=== PATIENT | female | born 1975 | race Caucasian/White ===

== ENCOUNTER 2016-07-20 08:49 | Emergency (ER) | payer OTHER ==
--- NOTE | 2016-07-20 10:38 | DIAGNOSTIC IMAGING REPORT ---
PROCEDURE: CT HEAD WITHOUT CONTRAST INDICATION: Headache. Vomiting. TECHNIQUE: Noncontrast axial images with sagittal and coronal reformations. COMPARISON: None. FINDINGS: Brain and ventricles are normal. No evidence of an acute process or hemorrhage. Sinuses and mastoids are normal. IMPRESSION: 1. Negative head CT. 2. Findings discussed with Dr. Ghislaine Son at [address] scans at this facility use dose modulation, iterative reconstruction, and/or weight-based dosing when appropriate to reduce radiation dose to as low as reasonably achievable.
--- NOTE | 2016-07-20 11:37 | ED NURSING NOTES ---
Clinical Report - Nurses [facility] [address] [place] [address] 07/20/2016 8:51 Patient: ADAM LYON TRIAGE Triage time 09:03. Acuity: LEVEL 4. Chief Complaint: HEADACHE. Alert. --09:07 Arabella Arredondo R.N. 09:03 07/20/16. BP: 108/57. HR: 66. RR: 18. O2 saturation: 100%. Temp: 97.7 F. Pain level now: 03/10. --09:07 Arabella Arredondo R.N. Weight: 63.5 kg stated. Height/Length: 67 inches Per Patient. BMI: 21.9. --09:02 Arabella Arredondo R.N. Medications Levothyroxine Sodium pt uncertain of dose. [place] Citrate Oral (low dose, 4 pills at night). --09:05 Arabella Arredondo R.N. Citalopram Hydrobromide Oral. --09:05 Arabella Arredondo R.N. Allergies Penicillins. --09:05 Arabella Arredondo R.N. History Arrived by private vehicle. Historian: patient. Unaccompanied. Primary physician (Reji). 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 PAST MEDICAL HX: Immunizations: up-to-date. Denies current . SOCIAL HX: Never smoker. Occasional alcohol use. No drug use. FUNCTIONAL ASSESSMENT: Functional assessment: no impairments noted. LEARNING NEEDS ASSESSMENT: The learning needs assessment revealed no barriers. --09:07 Arabella Arredondo R.N. PROBLEMS: Pelvic Pain. Substance Abuse. Bipolar Disorder. Chronic Back Pain. Gastritis. Vomiting. Diarrhea. Pancreatitis. Ovarian Cyst. Abdominal Pain. Hypothyroidism. Depression. Back Pain. Mechanism of Injury. Laceration. --09:06 Arabella Arredondo R.N. The following entry was modified by Ghislaine Son MD, 09:59 Reason - duplicate <<STRICKEN ENTRY-- Thyroid Disease. --09:55 Ghislaine Son MD --END STRIKE>>. ADDITIONAL SURGERIES: Back Surgery. --09:06 Arabella Arredondo R.N. Interventions ID band on patient. To room. --09:07 Arabella Arredondo R.N. PHYSICAL ASSESSMENT GENERAL / NEURO / PSYCH: Alert. Oriented X 4. ( Pt very quiet but answers questions appropriately). --09:08 Arabella Arredondo R.N. NURSING PROGRESS NOTES 09:07/20/16. Patient identifiers checked. Call light placed in reach. Bed placed in lowest position. Patient ready for evaluation- chart flagged. --09:08 Arabella Arredondo R.N. 10:35 07/20/2016 Site #1 started via IV in the right antecubital space with an 20g angiocath, with aseptic technique and good blood return; one attempt. Blood drawn: rainbow set. Labeled in the presence of the patient and sent to the lab. Saline lock flushed with 10 mL saline. --10:42 Sebastian Gary R.N. 10:36 07/20/2016 Started bag #1 1000 mL IV Fluids IV NS (Saline); bolus of 1000 mL over 1 hour(s) via site #1. Allergies verified and confirmed 5 rights. IV patency established. IV site checked: no pain, redness, or swelling. IV flushed thoroughly pre- and post-medication administration. --10:42 Sebastian Gary R.N. 10:36 07/20/2016 PHENERGAN (Promethazine HCl) IVP 25 mg given over 3 minute(s) via site #1. Allergies verified and confirmed 5 rights. IV patency established. IV site checked: no pain, redness, or swelling. IV flushed thoroughly pre- and post-medication administration. IVP given by RN. --10:42 Sebastian Gary R.N. 10:40 07/20/2016 Toradol IVP 30 mg given over 1 minute(s) via site #1. Allergies verified and confirmed 5 rights. IV patency established. IV site checked: no pain, redness, or swelling. IV flushed thoroughly pre- and post-medication administration. IVP given by RN. --10:43 Sebastian Gary R.N. 11:22 07/20/16. ( IV was kinked, not flowing well, repositions patients arm and flow returned.). --11:22 Aspen Olsen R.N. 11:19 07/20/16. BP: 112/57 (regular adult cuff) taken on the left arm, while lying. HR: 71. RR: 18. O2 saturation: 100% on room air. Temp: 98.2 F. Pain level now: 01/08. --11:22 Aspen Olsen R.N. DISPOSITION / DISCHARGE Departure time: 11:52. Condition at departure: improved. No learning barriers present. Discharge instructions provided and reviewed with the patient. Reviewed referral to family practice. Verbalized understanding. Written instructions provided. The patient was discharged home. She left the Emergency Department ambulatory and via private vehicle. --11:53 Arabella Arredondo R.N. 11:51 07/20/16. BP: 101/49. HR: 67. RR: 18. O2 saturation: 100%. Pain level now: 09/08. --11:53 Arabella Arredondo R.N. Locked/Released at 07/20/2016 11:54 by Arabella Arredondo R.N.
--- NOTE | 2016-07-20 11:37 | ED ORDER SUMMARY ---
..... Patient: ADAM LYON OrderSheet [facility] VisitID: [id number] [address] [place] [address] 41y, F Registration Date/Time: 07/20/2016 ORDER SHEET Weight: 63.5 kg (stated) Allergies: Penicillins GENERAL ORDERS: CT Head wo Cont Urgent (10:07 07/20/2016 Maria Del Rosario BIGGS) (Ack 10:23 LNations ER Tech1) (10:41 Ophelia R.N.) TSH Urgent (10:51 07/20/2016 Maria Del Rosario BIGGS) (Ack 11:00 LNations ER Tech1) (11:53 Manjeet R.N.) MEDICATION ORDERS: Phenergan IV 25 mg (HIGH ALERT MEDICATION, NOW) (09:49 07/20/2016 Maria Del Rosario BIGGS) (10:42 Ophelia R.N.) IV FLUIDS: IV NS : initial bolus 1000 mL (1000 mL/hr), then none - (NOW) (09:49 07/20/2016 Maria Del Rosario BIGGS) (10:42 Ophelia R.N.) Toradol IV 30 mg (NOW) (09:49 07/20/2016 Maria Del Rosario BIGGS) (10:43 Ophelia R.N.) ORDER SHEET NOTES: [Electronically signed by Arabella Arredondo R.N. (11:54 07/20/2016)] [Electronically signed by Ghislaine Son MD (12:12 07/22/2016)] [Electronically locked/signed by Arabella Arredondo R.N. (11:54 07/20/2016)]
--- NOTE | 2016-07-20 11:37 | ED NURSING NOTES ---
Clinical Report - Nurses [facility] [address] [place] [address] 07/20/2016 8:51 Patient: ADAM LYON TRIAGE Triage time 09:03. Acuity: LEVEL 4. Chief Complaint: HEADACHE. Alert. --09:07 Arabella Arredondo R.N. 09:03 07/20/16. BP: 108/57. HR: 66. RR: 18. O2 saturation: 100%. Temp: 97.7 F. Pain level now: 03/10. --09:07 Arabella Arredondo R.N. Weight: 63.5 kg stated. Height/Length: 67 inches Per Patient. BMI: 21.9. --09:02 Arabella Arredondo R.N. Medications Levothyroxine Sodium pt uncertain of dose. [place] Citrate Oral (low dose, 4 pills at night). --09:05 Arabella Arredondo R.N. Citalopram Hydrobromide Oral. --09:05 Arabella Arredondo R.N. Allergies Penicillins. --09:05 Arabella Arredondo R.N. History Arrived by private vehicle. Historian: patient. Unaccompanied. Primary physician (Reji). 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 PAST MEDICAL HX: Immunizations: up-to-date. Denies current . SOCIAL HX: Never smoker. Occasional alcohol use. No drug use. FUNCTIONAL ASSESSMENT: Functional assessment: no impairments noted. LEARNING NEEDS ASSESSMENT: The learning needs assessment revealed no barriers. --09:07 Arabella Arredondo R.N. PROBLEMS: Pelvic Pain. Substance Abuse. Bipolar Disorder. Chronic Back Pain. Gastritis. Vomiting. Diarrhea. Pancreatitis. Ovarian Cyst. Abdominal Pain. Hypothyroidism. Depression. Back Pain. Mechanism of Injury. Laceration. --09:06 Arabella Arredondo R.N. The following entry was modified by Ghislaine Son MD, 09:59 Reason - duplicate <<STRICKEN ENTRY-- Thyroid Disease. --09:55 Ghislaine Son MD --END STRIKE>>. ADDITIONAL SURGERIES: Back Surgery. --09:06 Arabella Arredondo R.N. Interventions ID band on patient. To room. --09:07 Arabella Arredondo R.N. PHYSICAL ASSESSMENT GENERAL / NEURO / PSYCH: Alert. Oriented X 4. ( Pt very quiet but answers questions appropriately). --09:08 Arabella Arredondo R.N. NURSING PROGRESS NOTES 09:07/20/16. Patient identifiers checked. Call light placed in reach. Bed placed in lowest position. Patient ready for evaluation- chart flagged. --09:08 Arabella Arredondo R.N. 10:35 07/20/2016 Site #1 started via IV in the right antecubital space with an 20g angiocath, with aseptic technique and good blood return; one attempt. Blood drawn: rainbow set. Labeled in the presence of the patient and sent to the lab. Saline lock flushed with 10 mL saline. --10:42 Sebastian Gary R.N. 10:36 07/20/2016 Started bag #1 1000 mL IV Fluids IV NS (Saline); bolus of 1000 mL over 1 hour(s) via site #1. Allergies verified and confirmed 5 rights. IV patency established. IV site checked: no pain, redness, or swelling. IV flushed thoroughly pre- and post-medication administration. --10:42 Sebastian Gary R.N. 10:36 07/20/2016 PHENERGAN (Promethazine HCl) IVP 25 mg given over 3 minute(s) via site #1. Allergies verified and confirmed 5 rights. IV patency established. IV site checked: no pain, redness, or swelling. IV flushed thoroughly pre- and post-medication administration. IVP given by RN. --10:42 Sebastian Gary R.N. 10:40 07/20/2016 Toradol IVP 30 mg given over 1 minute(s) via site #1. Allergies verified and confirmed 5 rights. IV patency established. IV site checked: no pain, redness, or swelling. IV flushed thoroughly pre- and post-medication administration. IVP given by RN. --10:43 Sebastian Gary R.N. 11:22 07/20/16. ( IV was kinked, not flowing well, repositions patients arm and flow returned.). --11:22 Aspen Olsen R.N. 11:19 07/20/16. BP: 112/57 (regular adult cuff) taken on the left arm, while lying. HR: 71. RR: 18. O2 saturation: 100% on room air. Temp: 98.2 F. Pain level now: 01/08. --11:22 Aspen Olsen R.N. DISPOSITION / DISCHARGE Departure time: 11:52. Condition at departure: improved. No learning barriers present. Discharge instructions provided and reviewed with the patient. Reviewed referral to family practice. Verbalized understanding. Written instructions provided. The patient was discharged home. She left the Emergency Department ambulatory and via private vehicle. --11:53 Arabella Arredondo R.N. 11:51 07/20/16. BP: 101/49. HR: 67. RR: 18. O2 saturation: 100%. Pain level now: 09/08. --11:53 Arabella Arredondo R.N. Locked/Released at 07/20/2016 11:54 by Arabella Arredondo R.N.
--- NOTE | 2016-07-20 11:37 | ED ORDER SUMMARY ---
..... Patient: ADAM LYON OrderSheet [facility] VisitID: [id number] [address] [place] [address] 41y, F Registration Date/Time: 07/20/2016 ORDER SHEET Weight: 63.5 kg (stated) Allergies: Penicillins GENERAL ORDERS: CT Head wo Cont Urgent (10:07 07/20/2016 Maria Del Rosario BIGGS) (Ack 10:23 LNations ER Tech1) (10:41 Ophelia R.N.) TSH Urgent (10:51 07/20/2016 Maria Del Rosario BIGGS) (Ack 11:00 LNations ER Tech1) (11:53 Manjeet R.N.) MEDICATION ORDERS: Phenergan IV 25 mg (HIGH ALERT MEDICATION, NOW) (09:49 07/20/2016 Maria Del Rosario BIGGS) (10:42 Ophelia R.N.) IV FLUIDS: IV NS : initial bolus 1000 mL (1000 mL/hr), then none - (NOW) (09:49 07/20/2016 Maria Del Rosario BIGGS) (10:42 Ophelia R.N.) Toradol IV 30 mg (NOW) (09:49 07/20/2016 Maria Del Rosario BIGGS) (10:43 Ophelia R.N.) ORDER SHEET NOTES: [Electronically signed by Arabella Arredondo R.N. (11:54 07/20/2016)] [Electronically signed by Ghislaine Son MD (12:12 07/22/2016)] [Electronically locked/signed by Arabella Arredondo R.N. (11:54 07/20/2016)]
--- NOTE | 2016-07-20 11:37 | ED CLINICAL REPORT ---
Clinical Report - Physicians/Mid Levels [facility] [address] [place] [address] 07/20/2016 8:51 Patient: ADAM LYON Time Seen: 09:28. Arrived- By private vehicle. Historian- patient. HISTORY OF PRESENT ILLNESS Is still present. Chief Complaint: HEADACHE. This started about 4 days ago. Onset during light activity. It is described as "pain". Located in the right temporal, frontal and right maxillary region and region of the right eye. No neck pain. At its maximum, severity described as moderate. When seen in the E.D., severity described as moderate. Modifying factors: worsened by bright light; relieved by nothing. The patient has had photophobia, nausea and vomiting. No preceding symptoms, blurred vision, numbness or weakness. No recent travel. Similar symptoms previously: Occasionally, milder. Recent medical care: Not recently seen/assessed. REVIEW OF SYSTEMS No fever, muscle aches, ear pain, sore throat or head injury. No chest pain, difficulty breathing, cough, abdominal pain or diarrhea. No pain with urination, skin rash, enlarged lymph nodes or back pain. The patient has had sinus pressure. All systems otherwise negative, except as recorded above. PAST HISTORY Problems: Substance Abuse. Bipolar Disorder. Chronic Back Pain. Pancreatitis. Ovarian Cyst. Immunizations. Hypothyroidism. Depression. Tetanus Status. LNMP - Last Normal Menstrual Period. Additional Surgeries: Back Surgery. Medications: Citalopram Hydrobromide Oral. Levothyroxine Sodium pt uncertain of dose. [place] Citrate Oral (low dose, 4 pills at night). Allergies: Penicillins. SOCIAL HISTORY Never smoker. Occasional alcohol use. No drug use. ADDITIONAL NOTES The nursing notes have been reviewed. PHYSICAL EXAM Vital Signs: 07/20/2016 09:03 BP: 108/57. HR: 66. RR: 18. O2 saturation: 100%. Temp: 97.7 F. Pain level now: 10/10. Have been reviewed. Appearance: Alert. No acute distress. (Pt appears moderately uncomfortable. She is lying in a darkened room.). Eyes: Pupils equal, round and reactive to light. Eyes normal inspection. ENT: Nose normal. Neck: Normal inspection. Neck supple. No meningeal signs. CVS: Normal heart rate and rhythm. Heart sounds normal. Pulses normal. Respiratory: No respiratory distress. Breath sounds normal. Abdomen: Soft and nontender. Back: Normal inspection. No CVA tenderness. Skin: Skin warm and dry. Normal skin color. No rash. Normal skin turgor. Extremities: Extremities exhibit normal ROM. No lower extremity edema. Neuro: Oriented X 3. Alert. Mood/affect normal. Speech normal. Cranial nerves normal (as tested). No cerebellar findings. No motor deficit. No sensory deficit. LABS, X-RAYS, AND EKG CT Head: Normal study. No acute changes. No bony abnormalities, no hemorrhage, no intracranial mass, no midline shift and no hydrocephalus. No atrophy. Head CT performed with contrast. The study was independently viewed by me, interpreted by the radiologist and contemporaneously by me and discussed with the radiologist. Prior studies were not available for comparison. Pulse Oximetry: 07/20/2016 09:03 O2 saturation: 100%. (FIO2 - room air). Interpretation: normal. PROGRESS AND PROCEDURES Course of Care: Pt was given IV fluids, Toradol, and Phenergan for symptomatic relief. She was worked up with a head CT, which was negative. Patient counseled in person regarding the patient's stable condition, test results, diagnosis and need for follow-up. Concerns were addressed. Old medical records reviewed. Disposition: Discharged. Condition: stable and improved. CLINICAL IMPRESSION Acute migraine headache with status migrainosus. Not poorly controlled or refractory to treatment. INSTRUCTIONS Warnings: SEDATIVE MEDICATION: You were given sedative medication during your visit. Do not drive or operate dangerous machinery for 6 hours. GENERAL WARNINGS: Return or contact your physician immediately if your condition worsens or changes unexpectedly, if not improving as expected, or if other problems arise. Your Current Medications: CONTINUE TAKING THE FOLLOWING MEDICATIONS: Citalopram Hydrobromide Oral. Levothyroxine Sodium : pt uncertain of dose. [place] Citrate Oral : low dose, 4 pills at night. Follow-up: Follow up with your doctor. Call for the next available appointment. Reason for referral: Follow up ER visit. Understanding of the discharge instructions verbalized by patient. (Electronically signed by Ghislaine Son MD 07/22/2016 12:12)
--- NOTE | 2016-07-22 12:12 | ED MED RECONCILIATION SUMMARY ---
Patient: ADAM LYON Medication Reconciliation Report [facility] VisitID: [id number] [address] [place] [address] 41y, F Registration Date/Time: 07/20/2016 Weight: 63.5 kg Height/Length: 67 in. BMI: 21.9 ALLERGIES: Penicillins The patient's Home Medications are listed below: CONTINUE TAKING THE FOLLOWING MEDICATIONS: Citalopram Hydrobromide Oral Levothyroxine Sodium pt uncertain of dose [place] Citrate Oral, low dose, 4 pills at night The source(s) of the original Home Medication information: Not obtained. The following Medications were given to the patient in the Emergency Department: IV NS IV Fluids bolus 1000 mL over 1 hour(s), administered: 07/20/2016 10:36:00 AM PHENERGAN [IVP] IVP 25 mg, administered: 07/20/2016 10:36:00 AM Toradol [IVP] IVP 30 mg, administered: 07/20/2016 10:40:00 AM The following Medications were prescribed to the patient: None.
--- NOTE | 2016-07-22 12:12 | ED MED RECONCILIATION SUMMARY ---
Patient: ADAM LYON Medication Reconciliation Report [facility] VisitID: [id number] [address] [place] [address] 41y, F Registration Date/Time: 07/20/2016 Weight: 63.5 kg Height/Length: 67 in. BMI: 21.9 ALLERGIES: Penicillins The patient's Home Medications are listed below: CONTINUE TAKING THE FOLLOWING MEDICATIONS: Citalopram Hydrobromide Oral Levothyroxine Sodium pt uncertain of dose [place] Citrate Oral, low dose, 4 pills at night The source(s) of the original Home Medication information: Not obtained. The following Medications were given to the patient in the Emergency Department: IV NS IV Fluids bolus 1000 mL over 1 hour(s), administered: 07/20/2016 10:36:00 AM PHENERGAN [IVP] IVP 25 mg, administered: 07/20/2016 10:36:00 AM Toradol [IVP] IVP 30 mg, administered: 07/20/2016 10:40:00 AM The following Medications were prescribed to the patient: None.
--- NOTE | 2016-07-22 12:12 | ED MAR SUMMARY ---
..... Medication Administration Record [facility] [address] [place] [address] Patient: ADAM LYON Visit ID: [id number] 41y, F Weight: 63.5 kg Height/Length: 67 in BMI: 21.9 ALLERGIES: Penicillins Start 10:36 07/20/2016 Sebastian Gary R.N. Medication Administered: IV NS (SALINE), Dose: IV Fluids, Bolus: 1000 mL over 1 hour(s), Dispensed: 1000 mL bag, Site: #1 right AC. Medication Ordered: IV NS : initial bolus 1000 mL (1000 mL/hr), then none - (NOW). Given 10:36 07/20/2016 Sebastian Gary R.N. Medication Administered: PHENERGAN [IVP] (PROMETHAZINE HCL), Dose: 25 mg IVP over 3 minute(s), Site: #1 right AC. Medication Ordered: Phenergan IV 25 mg (HIGH ALERT MEDICATION, NOW). Given 10:40 07/20/2016 Sebastian Gary R.N. Medication Administered: TORADOL [IVP], Dose: 30 mg IVP over 1 minute(s), Site: #1 right AC. Medication Ordered: Toradol IV 30 mg (NOW).
--- NOTE | 2016-07-22 12:12 | ED DISCHARGE INSTRUCTIONS ---
Patient: ADAM LYON General Instructions [facility] VisitID: [id number] [place] [address] 41y, F Registration Date/Time: 07/20/2016 Acute migraine headache with status migrainosus. Not poorly controlled or refractory to treatment. INSTRUCTIONS Warnings: SEDATIVE MEDICATION: You were given sedative medication during your visit. Do not drive or operate dangerous machinery for 6 hours. GENERAL WARNINGS: Return or contact your physician immediately if your condition worsens or changes unexpectedly, if not improving as expected, or if other problems arise. Your Current Medications: CONTINUE TAKING THE FOLLOWING MEDICATIONS: Citalopram Hydrobromide Oral. Levothyroxine Sodium : pt uncertain of dose. [place] Citrate Oral : low dose, 4 pills at night. Follow-up: Follow up with your doctor. Call for the next available appointment. Reason for referral: Follow up ER visit. Understanding of the discharge instructions verbalized by patient. ADDITIONAL INFORMATION Migraine Headache Migraine headaches are related to changes in blood flow to the brain. This causes throbbing or constant pain on one or both sides of the head. The pain may last from a few hours to several days. There is usually nausea, vomiting, sensitivity to light and sound, and blurred vision. A migraine attack may be triggered by emotional stress, hormone changes during the menstrual cycle, oral contraceptives, alcohol use, certain foods containing tyramine, eye strain, weather changes, missing meals, or too little or too much sleep. Home Care For This Headache: 1) If you were given pain medicine for this headache, do not drive yourself home . Arrange for a ride, instead. When you get home, try to sleep. You should feel much better when you wake up. 2) Migraine headaches may improve with an ice pack on the forehead or at the base of the skull. Heat to the back of your neck may relieve any neck spasm. 3) Drink only clear liquids or eat a very light diet to avoid nausea/vomiting until symptoms improve. Preventing Future Headaches: 1) Pay attention to those factors that seem to trigger your headache. Try to avoid them when you can. If you have frequent headaches, it is useful to keep a diary of what you were doing, feeling or eating in the hours before each attack. Show this to your doctor to help find the cause of your headaches. a) If you feel that stress is a factor in your headaches, look at the sources of stress in your life. Find ways to release the build-up of those stresses by using regular exercise, relaxation methods (yoga, meditation), bio-feedback or simply taking time-out for yourself. For more information about this, consult your doctor or go to a local bookstore and review books and tapes on this subject. b) Tyramine is a substance present in the following foods : chocolate, yogurt, all cheeses except cottage cheese and cream cheese. smoked or pickled fish and meat (including raman, caviar, bologna, pepperoni, salami), liver, avocados, bananas, figs, raisins, and red wine. Be aware that these foods may trigger a migraine in some persons. Try taking these foods out of your diet for 1-2 months to see if this reduces headache frequency. Treating Future Attacks: 1) At the first sign of a headache, take time out if possible. Find a quiet, dark, comfortable place to sit or lie down. Let yourself relax or sleep. 2) An ice pack on the forehead or area of greatest pain may help. If you are having muscle spasm and tightness of the neck, a heating pad and massage to this area may be helpful. 3) If you have been prescribed a medicine to stop a migraine headache, use this at the very first warning sign of the headache (aura or initial pain) for best results. Follow Up with your doctor if the headache is not better within the next 24 hours. If you have frequent headaches you should discuss a treatment plan with your primary care doctor. Ask if you can have medicine to take at home the next time you get a bad headache. Poorly controlled chronic headaches may require a referral to a neurologist (headache specialist). Get Prompt Medical Attention if any of the following occur: Your head pain gets worse, or does not improve within 24 hours Repeated vomiting (cant keep liquids down) Sinus or ear or throat pain (not already reported) Fever of 100.4 F (38 C) or higher, or as directed by your healthcare provider Stiff neck Extreme drowsiness, confusion or fainting Dizziness, vertigo (dizziness with spinning sensation) Weakness of an arm or leg or one side of the face Difficulty with speech or vision You have been given the following additional information: Headache, Migraine (Classical) (Electronically signed by Ghislaine Son MD 07/22/2016 12:12)
--- NOTE | 2016-07-22 12:12 | ED MAR SUMMARY ---
..... Medication Administration Record [facility] [address] [place] [address] Patient: ADAM LYON Visit ID: [id number] 41y, F Weight: 63.5 kg Height/Length: 67 in BMI: 21.9 ALLERGIES: Penicillins Start 10:36 07/20/2016 Sebastian Gary R.N. Medication Administered: IV NS (SALINE), Dose: IV Fluids, Bolus: 1000 mL over 1 hour(s), Dispensed: 1000 mL bag, Site: #1 right AC. Medication Ordered: IV NS : initial bolus 1000 mL (1000 mL/hr), then none - (NOW). Given 10:36 07/20/2016 Sebastian Gary R.N. Medication Administered: PHENERGAN [IVP] (PROMETHAZINE HCL), Dose: 25 mg IVP over 3 minute(s), Site: #1 right AC. Medication Ordered: Phenergan IV 25 mg (HIGH ALERT MEDICATION, NOW). Given 10:40 07/20/2016 Sebastian Gary R.N. Medication Administered: TORADOL [IVP], Dose: 30 mg IVP over 1 minute(s), Site: #1 right AC. Medication Ordered: Toradol IV 30 mg (NOW).
== END 2016-07-20 11:48 | disposition home or self-care (01) ==
LOC: ED SRH 08:49
DX: G43.009 Migraine without aura, not intractable, without status migrainosus (principal); E07.9 Disorder of thyroid, unspecified; Z79.899 Other long term (current) drug therapy
CPT/HCPCS: 93140

== ENCOUNTER 2016-09-23 06:46 | Emergency (ER) | payer OTHER ==
--- NOTE | 2016-09-23 07:13 | ED NURSING NOTES ---
Clinical Report - Nurses [facility] [address] [place] [address] 09/23/2016 6:47 Patient: ADAM LYON TRIAGE Triage time 06:52. Acuity: LEVEL 4. Chief Complaint: LEFT EAR PAIN and SINUS CONGESTION. --06:55 Luna RNakulN. 06:52 09/23/16. BP: 126/57. HR: 73. RR: 18. O2 saturation: 100%. Temp: 98.2 F. Pain level now: 12/08. --06:55 Luna R.N. Weight: 63.5 kg. Height/Length: 67 inches. BMI: 21.9. --06:53 TaylorB R.N. Medications Citalopram Hydrobromide Oral. Levothyroxine Sodium pt uncertain of dose. [place] Citrate Oral (low dose, 4 pills at night). --06:53 Luna RNakulN. Allergies Amoxicillin. --06:53 Luna R.N. History Arrived by private vehicle. Historian: patient. Accompanied by family. Onset. (started Thursday night). She has had a nasal discharge, a sore throat, sinus pain and a headache. 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 PAST MEDICAL HX: Immunizations: up-to-date. Last normal menstrual period- 1. SOCIAL HX: Never smoker. No alcohol use or drug use. No infectious disease exposure. SELF HARM ASSESSMENT: A self harm assessment was performed. The patient answered "no" to the question "Have you recently felt down, depressed, or hopeless?", "Have you noticed less interest or pleasure in doing things?", "Do you have thoughts of harming or killing yourself?", "Are you here because you tried to hurt yourself?", "Have you ever tried to hurt yourself before today?", "Have you recently had thoughts about harming or killing others?" and "Do you have any dangerous items in your possession?". FALL RISK ASSESSMENT: Fall risk assessment completed. No fall risk identified. NUTRITIONAL RISK ASSESSMENT: The nutritional risk assessment revealed no deficiencies. FUNCTIONAL ASSESSMENT: Functional assessment: no impairments noted. LEARNING NEEDS ASSESSMENT: The learning needs assessment revealed no barriers. SKIN INTEGRITY ASSESSMENT: Skin integrity risk assessment completed. No skin integrity risk identified. --06:55 Fer Carrasco PROBLEMS: Migraine Headache. Pelvic Pain. Substance Abuse. Bipolar Disorder. Chronic Back Pain. Gastritis. Vomiting. Diarrhea. Pancreatitis. Ovarian Cyst. Abdominal Pain. Immunizations. Hypothyroidism. Depression. Back Pain. Mechanism of Injury. Laceration. Tetanus Status. LNMP - Last Normal Menstrual Period. --06:53 Tejas Carrasco. ADDITIONAL SURGERIES: Back Surgery. --06:53 Fer Carrasco Interventions ID band on patient. To room. --06:55 Fer Carrasco PHYSICAL ASSESSMENT Ambulatory to room. GENERAL / NEURO / PSYCH: Alert. Appears in no acute distress. HEENT: No facial asymmetry noted. Pupils equal, round and reactive to light. EOM intact. Nares within normal limits. RESPIRATORY: Respirations not labored. CVS: Capillary refill less than 2 seconds. SKIN: Skin is warm and dry. --06:55 Fer Carrasco NURSING PROGRESS NOTES Patient identifiers checked. Call light placed in reach. Side rails up x 1. Bed placed in lowest position. Brakes of bed on. --06:55 Fer Carrasco Care transferred and report received. --07:02 Mari Villegas R.N. DISPOSITION / DISCHARGE ( Departure time: 07:23. No learning barriers present. Discharge instructions provided and reviewed with the patient. Reviewed medication(s) information. Prescription(s) given to the patient. Work note given. Patient verbalized understanding. Written instructions provided in [place]. The patient was discharged home and accompanied by family. He left the Emergency Department ambulatory and via private vehicle. 7:23 Mari Villegas R.N.). --07:24 Mari Villegas R.N. 07:20 09/23/16. BP: 121/69. HR: 82. RR: 16. O2 saturation: 98%. --07:25 Mari Villegas R.N. Locked/Released at 09/23/2016 7:25 by Mari Villegas R.N.
--- NOTE | 2016-09-23 07:13 | ED CLINICAL REPORT ---
Clinical Report - Physicians/Mid Levels [facility] [address] [place] [address] 09/23/2016 6:47 Patient: ADAM LYON Time Seen: 07:05 Sep 23 2016. Arrived- By private vehicle. Historian- patient. CPT: ER phys charges level 3 (#[id number]). HISTORY OF PRESENT ILLNESS Chief Complaint: EARACHE. sinus pain. 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 Onset during light activity. Modifying factors. Not worsened by anything. Not relieved by anything. Location- left ear. The pain is described as moderate. The patient has had ear pain. No ear drainage, hearing loss, nasal discharge, complaint of foreign body in the ear or ear trauma. No recent barotrauma. She has had nasal congestion and sinus pressure. Similar symptoms previously: None. Recent medical care: Not recently seen/assessed. REVIEW OF SYSTEMS No fever, chills, cough, difficulty breathing or chest pain. No nausea, vomiting, diarrhea, abdominal pain or difficulty with urination. No skin rash or enlarged lymph nodes. All systems otherwise negative, except as recorded above. PAST HISTORY Migraine Headache. Pelvic Pain. Substance Abuse. Bipolar Disorder. Chronic Back Pain. Gastritis. Vomiting. Diarrhea. Pancreatitis. Ovarian Cyst. Abdominal Pain. Immunizations. Hypothyroidism. Depression. Back Pain. Mechanism of Injury. Laceration. Tetanus Status. LNMP - Last Normal Menstrual Period. --06:53 Fer Carrasco ADDITIONAL SURGERIES: Back Surgery. Medications: Citalopram Hydrobromide Oral. Levothyroxine Sodium pt uncertain of dose. [place] Citrate Oral (low dose, 4 pills at night). Allergies: Amoxicillin. SOCIAL HISTORY Never smoker. No alcohol use or drug use. ADDITIONAL NOTES The nursing notes have been reviewed. PHYSICAL EXAM Vital Signs: 09/23/2016 06:52 BP: 126/57. HR: 73. RR: 18. O2 saturation: 100%. Temp: 98.2 F. Pain level now: 7/10. Appearance: Alert. No acute distress. Ear (left): There is dullness, bulging and perforation of the tympanic membrane, fluid behind the tympanic membrane and loss of tympanic membrane landmarks. Left ear normal. Nose: Tenderness present to percussion/palpation of the sinuses: mild right and left maxillary tenderness. Ear (right): Right ear normal. Throat: Pharynx normal. Neck: Normal inspection. Neck supple. No meningeal signs or lymphadenopathy. CVS: Normal heart rate and rhythm. Heart sounds normal. Respiratory: No respiratory distress. Breath sounds normal. Abdomen: Soft. Skin: Skin warm. Normal skin color. No rash. Neuro: Oriented X 3. No motor deficit. PROGRESS AND PROCEDURES Patient/family counseled. Disposition: Discharged. Condition: stable. CLINICAL IMPRESSION Acute and recurrent suppurative left otitis media with perforation. Acute and recurrent maxillary sinusitis INSTRUCTIONS Do not work for two days until better. Warnings: Further evaluation is necessary. GENERAL WARNINGS: Return or contact your physician immediately if your condition worsens or changes unexpectedly, if not improving as expected, or if other problems arise. Your Current Medications: CONTINUE TAKING THE FOLLOWING MEDICATIONS: Citalopram Hydrobromide Oral. Levothyroxine Sodium : pt uncertain of dose. [place] Citrate Oral : low dose, 4 pills at night. Prescription Medications: Ceftin 500 mg: take 1 tab orally every 12 hours for 14 days. No refill. Oxycodone/APAP 5 mg/325 mg: take 1-2 tablets orally every 6 hours as needed for pain. Dispense fifteen (15). No refill. Follow-up: Follow up with your doctor in one week. Call for an appointment. Understanding of the discharge instructions verbalized by patient. (Electronically signed by Med Randolph MD 09/30/2016 15:15)
--- NOTE | 2016-09-23 07:13 | ED CLINICAL REPORT ---
Clinical Report - Physicians/Mid Levels [facility] [address] [place] [address] 09/23/2016 6:47 Patient: ADAM LYON Time Seen: 07:05 Sep 23 2016. Arrived- By private vehicle. Historian- patient. CPT: ER phys charges level 3 (#[id number]). HISTORY OF PRESENT ILLNESS Chief Complaint: EARACHE. sinus pain. 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 Onset during light activity. Modifying factors. Not worsened by anything. Not relieved by anything. Location- left ear. The pain is described as moderate. The patient has had ear pain. No ear drainage, hearing loss, nasal discharge, complaint of foreign body in the ear or ear trauma. No recent barotrauma. She has had nasal congestion and sinus pressure. Similar symptoms previously: None. Recent medical care: Not recently seen/assessed. REVIEW OF SYSTEMS No fever, chills, cough, difficulty breathing or chest pain. No nausea, vomiting, diarrhea, abdominal pain or difficulty with urination. No skin rash or enlarged lymph nodes. All systems otherwise negative, except as recorded above. PAST HISTORY Migraine Headache. Pelvic Pain. Substance Abuse. Bipolar Disorder. Chronic Back Pain. Gastritis. Vomiting. Diarrhea. Pancreatitis. Ovarian Cyst. Abdominal Pain. Immunizations. Hypothyroidism. Depression. Back Pain. Mechanism of Injury. Laceration. Tetanus Status. LNMP - Last Normal Menstrual Period. --06:53 Fer Carrasco ADDITIONAL SURGERIES: Back Surgery. Medications: Citalopram Hydrobromide Oral. Levothyroxine Sodium pt uncertain of dose. [place] Citrate Oral (low dose, 4 pills at night). Allergies: Amoxicillin. SOCIAL HISTORY Never smoker. No alcohol use or drug use. ADDITIONAL NOTES The nursing notes have been reviewed. PHYSICAL EXAM Vital Signs: 09/23/2016 06:52 BP: 126/57. HR: 73. RR: 18. O2 saturation: 100%. Temp: 98.2 F. Pain level now: 7/10. Appearance: Alert. No acute distress. Ear (left): There is dullness, bulging and perforation of the tympanic membrane, fluid behind the tympanic membrane and loss of tympanic membrane landmarks. Left ear normal. Nose: Tenderness present to percussion/palpation of the sinuses: mild right and left maxillary tenderness. Ear (right): Right ear normal. Throat: Pharynx normal. Neck: Normal inspection. Neck supple. No meningeal signs or lymphadenopathy. CVS: Normal heart rate and rhythm. Heart sounds normal. Respiratory: No respiratory distress. Breath sounds normal. Abdomen: Soft. Skin: Skin warm. Normal skin color. No rash. Neuro: Oriented X 3. No motor deficit. PROGRESS AND PROCEDURES Patient/family counseled. Disposition: Discharged. Condition: stable. CLINICAL IMPRESSION Acute and recurrent suppurative left otitis media with perforation. Acute and recurrent maxillary sinusitis INSTRUCTIONS Do not work for two days until better. Warnings: Further evaluation is necessary. GENERAL WARNINGS: Return or contact your physician immediately if your condition worsens or changes unexpectedly, if not improving as expected, or if other problems arise. Your Current Medications: CONTINUE TAKING THE FOLLOWING MEDICATIONS: Citalopram Hydrobromide Oral. Levothyroxine Sodium : pt uncertain of dose. [place] Citrate Oral : low dose, 4 pills at night. Prescription Medications: Ceftin 500 mg: take 1 tab orally every 12 hours for 14 days. No refill. Oxycodone/APAP 5 mg/325 mg: take 1-2 tablets orally every 6 hours as needed for pain. Dispense fifteen (15). No refill. Follow-up: Follow up with your doctor in one week. Call for an appointment. Understanding of the discharge instructions verbalized by patient. (Electronically signed by Med Randolph MD 09/30/2016 15:15)
--- NOTE | 2016-09-23 07:13 | ED NURSING NOTES ---
Clinical Report - Nurses [facility] [address] [place] [address] 09/23/2016 6:47 Patient: ADAM LYON TRIAGE Triage time 06:52. Acuity: LEVEL 4. Chief Complaint: LEFT EAR PAIN and SINUS CONGESTION. --06:55 Luna RNakulN. 06:52 09/23/16. BP: 126/57. HR: 73. RR: 18. O2 saturation: 100%. Temp: 98.2 F. Pain level now: 12/08. --06:55 Luna R.N. Weight: 63.5 kg. Height/Length: 67 inches. BMI: 21.9. --06:53 TaylorB R.N. Medications Citalopram Hydrobromide Oral. Levothyroxine Sodium pt uncertain of dose. [place] Citrate Oral (low dose, 4 pills at night). --06:53 Luna RNakulN. Allergies Amoxicillin. --06:53 Luna R.N. History Arrived by private vehicle. Historian: patient. Accompanied by family. Onset. (started Thursday night). She has had a nasal discharge, a sore throat, sinus pain and a headache. 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 PAST MEDICAL HX: Immunizations: up-to-date. Last normal menstrual period- 1. SOCIAL HX: Never smoker. No alcohol use or drug use. No infectious disease exposure. SELF HARM ASSESSMENT: A self harm assessment was performed. The patient answered "no" to the question "Have you recently felt down, depressed, or hopeless?", "Have you noticed less interest or pleasure in doing things?", "Do you have thoughts of harming or killing yourself?", "Are you here because you tried to hurt yourself?", "Have you ever tried to hurt yourself before today?", "Have you recently had thoughts about harming or killing others?" and "Do you have any dangerous items in your possession?". FALL RISK ASSESSMENT: Fall risk assessment completed. No fall risk identified. NUTRITIONAL RISK ASSESSMENT: The nutritional risk assessment revealed no deficiencies. FUNCTIONAL ASSESSMENT: Functional assessment: no impairments noted. LEARNING NEEDS ASSESSMENT: The learning needs assessment revealed no barriers. SKIN INTEGRITY ASSESSMENT: Skin integrity risk assessment completed. No skin integrity risk identified. --06:55 Fer Carrasco PROBLEMS: Migraine Headache. Pelvic Pain. Substance Abuse. Bipolar Disorder. Chronic Back Pain. Gastritis. Vomiting. Diarrhea. Pancreatitis. Ovarian Cyst. Abdominal Pain. Immunizations. Hypothyroidism. Depression. Back Pain. Mechanism of Injury. Laceration. Tetanus Status. LNMP - Last Normal Menstrual Period. --06:53 Tejas Carrasco. ADDITIONAL SURGERIES: Back Surgery. --06:53 Fer Carrasco Interventions ID band on patient. To room. --06:55 Fer Carrasco PHYSICAL ASSESSMENT Ambulatory to room. GENERAL / NEURO / PSYCH: Alert. Appears in no acute distress. HEENT: No facial asymmetry noted. Pupils equal, round and reactive to light. EOM intact. Nares within normal limits. RESPIRATORY: Respirations not labored. CVS: Capillary refill less than 2 seconds. SKIN: Skin is warm and dry. --06:55 Fer Carrasco NURSING PROGRESS NOTES Patient identifiers checked. Call light placed in reach. Side rails up x 1. Bed placed in lowest position. Brakes of bed on. --06:55 Fer Carrasco Care transferred and report received. --07:02 Mari Villegas R.N. DISPOSITION / DISCHARGE ( Departure time: 07:23. No learning barriers present. Discharge instructions provided and reviewed with the patient. Reviewed medication(s) information. Prescription(s) given to the patient. Work note given. Patient verbalized understanding. Written instructions provided in [place]. The patient was discharged home and accompanied by family. He left the Emergency Department ambulatory and via private vehicle. 7:23 Mari Villegas R.N.). --07:24 Mari Villegas R.N. 07:20 09/23/16. BP: 121/69. HR: 82. RR: 16. O2 saturation: 98%. --07:25 Mari Villegas R.N. Locked/Released at 09/23/2016 7:25 by Mari Villegas R.N.
--- NOTE | 2016-09-30 15:15 | ED DISCHARGE INSTRUCTIONS ---
Patient: ADAM LYON General Instructions [facility] VisitID: [id number] [address] [place] [address] 41y, F Registration Date/Time: 09/23/2016 Acute and recurrent suppurative left otitis media with perforation. Acute and recurrent maxillary sinusitis INSTRUCTIONS Do not work for two days until better. Warnings: Further evaluation is necessary. GENERAL WARNINGS: Return or contact your physician immediately if your condition worsens or changes unexpectedly, if not improving as expected, or if other problems arise. Your Current Medications: CONTINUE TAKING THE FOLLOWING MEDICATIONS: Citalopram Hydrobromide Oral. Levothyroxine Sodium : pt uncertain of dose. Datil Citrate Oral : low dose, 4 pills at night. Prescription Medications: Ceftin 500 mg: take 1 tab orally every 12 hours for 14 days. No refill. Oxycodone/APAP 5 mg/325 mg: take 1-2 tablets orally every 6 hours as needed for pain. Dispense fifteen (15). No refill. Follow-up: Follow up with your doctor in one week. Call for an appointment. Understanding of the discharge instructions verbalized by patient. ADDITIONAL INFORMATION Middle Ear Infection (Adult) You have an infection of the middle ear (the space behind the eardrum). It can occur as a result of the common cold. This is because congestion can block the internal passage (eustachian tube) that drains fluid from the middle ear. When the middle ear fills with fluid, bacteria can grow there and cause an infection. Oral antibiotics are used to treat this illness, not ear drops. Symptoms usually start to improve within 1-2 days of treatment. Home Care: Finish all of the antibiotic medicine prescribed, even though you may feel better after the first few days. You may use acetaminophen (Tylenol) or ibuprofen (Motrin, Advil) to control pain, unless something else was prescribed. [NOTE: If you have chronic liver or kidney disease or have ever had a stomach ulcer or GI bleeding, talk with your doctor before using these medicines.] (Do not give aspirin to anyone under 18 years of age who is ill with a fever. It may cause severe liver damage.) Follow Up with your doctor or this facility in two weeks if all symptoms have not cleared, or if hearing does not return to normal within one month. Get Prompt Medical Attention if any of the following occur: Ear pain gets worse or does not improve after three days of treatment Unusual drowsiness or confusion Neck pain, stiff neck or headache Fluid or blood draining from the ear canal Fever of 100.4F (38C) or higher after 3 days of antibiotics, or as directed by your healthcare provider Convulsion (seizure) Sinusitis [Abx Tx] The sinuses are air-filled spaces within the bones of the face. They connect to the inside of the nose. Sinusitis is an inflammation of the tissue lining the sinus cavity. Sinus inflammation can occur during a cold or hay-fever (allergies to pollens and other particles in the air) and cause symptoms of sinus congestion and fullness. A sinus infection causes fever, headache and facial pain. There is usually green or yellow drainage from the nose or into the back of the throat (post-nasal drip). Antibiotics are prescribed to treat this condition. Home Care: Drink plenty of water, hot tea, and other liquids to stay well hydrated. This thins the mucus and promotes sinus drainage. Apply heat to the painful areas of the face. Use a towel soaked in hot water. Or, line helper the shower and direct the hot spray onto your face. This is a good way to inhale warm water vapor and get heat on your face at the same time. (Cover your mouth and nose with your hands so you can still breathe as you do this.) Use a vaporizer with products such as [employer] VapoRub (contains menthol) at night. Suck on peppermint, menthol or eucalyptus hard candies during the day. An expectorant containing guaifenesin (such as Robitussin), helps to thin the mucus and promote drainage from the sinuses. [id number] decongestants may be used unless a similar medicine was prescribed. Nasal sprays work the fastest. Use one that contains phenylephrine (Hair-synephrine, Sinex and others) or oxymetazoline (Afrin). First blow the nose gently to remove mucus, then apply the drops. Do not use these medicines more often than directed on the label or for more than three days or symptoms may worsen. You may also use tablets containing pseudoephedrine (Sudafed). Many sinus remedies combine ingredients, which may increase side effects. Read the labels or ask the pharmacist for help. NOTE: Persons with high blood pressure should not use decongestants. They can raise blood pressure. Antihistamines are useful if allergies are a cause of your sinusitis. The mildest one is chlorpheniramine (available without a prescription). The dose for adults is 8-12mg three times a day. [NOTE: Do not use chlorpheniramine if you have glaucoma or if you are a man with trouble urinating due to an enlarged prostate.] Claritin (loratidine) is an antihistamine that causes less drowsiness and is a good alternative for daytime use. Do not use nasal rinses or irrigation during an acute sinus infection, unless advised by your doctor. Rinsing may spread the infection to other sinuses. You may use acetaminophen (Tylenol) or ibuprofen (Motrin, Advil) to control pain, unless another pain medicine was prescribed. [ NOTE: If you have chronic liver or kidney disease or ever had a stomach ulcer, talk with your doctor before using these medicines.] (Aspirin should never be used in anyone under 18 years of age who is ill with a fever. It may cause severe liver damage.) Finish the full course, even if you are feeling better after a few days. Follow Up with your doctor or this facility in one week or as instructed by our staff if not improving. Get Prompt Medical Attention if any of the following occur: Facial pain or headache becomes more severe Stiff neck Unusual drowsiness or confusion, or not acting like your normal self Swelling of the forehead or eyelids Vision problems including blurred or double vision Fever of 100.4F (38C) or higher, or as directed by your healthcare provider Seizure Cefuroxime Axetil Oral tablet What is this medicine? CEFUROXIME (se fyoor OX eem) is a cephalosporin antibiotic. It is used to treat certain kinds of bacterial infections. It will not work for colds, flu, or other viral infections. How should I use this medicine? Take this medicine by mouth with a full glass of water. Follow the directions on the prescription label. Do not crush or chew. This medicine works best if you take it with food. Take your medicine at regular intervals. Do not take your medicine more often than directed. Take all of your medicine as directed even if you think your are better. Do not skip doses or stop your medicine early. Talk to your store operations associate regarding the use of this medicine in children. Special care may be needed. While this drug may be prescribed for children as young as 3 months of age for selected conditions, precautions do apply. What side effects may I notice from receiving this medicine? Side effects that you should report to your doctor or health healthcare project manager as soon as possible: allergic reactions like skin rash, itching or hives, swelling of the face, lips, or tongue dark urine difficulty breathing fever irregular heartbeat or chest pain redness, blistering, peeling or loosening of the skin, including inside the mouth seizures unusual bleeding or bruising unusually weak or tired white patches or sores in the mouth Side effects that usually do not require medical attention (report to your doctor or health healthcare project manager if they continue or are bothersome): diarrhea gas or heartburn headache nausea, vomiting vaginal itching What may interact with this medicine? antacids diurectics other antibiotics probenecid warfarin What if I miss a dose? If you miss a dose, take it as soon as you can. If it is almost time for your next dose, take only that dose. Do not take double or extra doses. Where should I keep my medicine? Keep out of the reach of children. Store at room temperature between 15 and 30 degrees C (59 and 86 degrees F). Keep container tightly closed. Protect from moisture. Throw away any unused medicine after the expiration date. What should I tell my health care provider before I take this medicine? They need to know if you have any of these conditions: bleeding problems bowel disease, like colitis kidney disease liver disease an unusual or allergic reaction to cefuroxime, other antibiotics or medicines, foods, dyes or preservatives or trying to get breast-feeding What should I watch for while using this medicine? Tell your doctor or health healthcare project manager if your symptoms do not improve or if you get new symptoms. Do not treat diarrhea with over the counter products. Contact your doctor if you have diarrhea that lasts more than 2 days or if it is severe and watery. This medicine can interfere with some urine glucose tests. If you use such tests, talk with your health healthcare project manager. If you are being treated for a sexually transmitted disease, avoid sexual contact until you have finished your treatment. Your sexual partner may also need treatment. Oxycodone Hydrochloride, Acetaminophen Oral tablet What is this medicine? ACETAMINOPHEN; OXYCODONE (a set a SANJAY prince fen; ox i KOE done) is a pain reliever. It is used to treat mild to moderate pain. How should I use this medicine? Take this medicine by mouth with a full glass of water. Follow the directions on the prescription label. Take your medicine at regular intervals. Do not take your medicine more often than directed. Talk to your store operations associate regarding the use of this medicine in children. Special care may be needed. Patients over 65 years old may have a stronger reaction and need a smaller dose. What side effects may I notice from receiving this medicine? Side effects that you should report to your doctor or health healthcare project manager as soon as possible: allergic reactions like skin rash, itching or hives, swelling of the face, lips, or tongue breathing difficulties, wheezing confusion light headedness or fainting spells severe stomach pain yellowing of the skin or the whites of the eyes Side effects that usually do not require medical attention (report to your doctor or health healthcare project manager if they continue or are bothersome): dizziness drowsiness nausea vomiting What may interact with this medicine? alcohol antihistamines barbiturates like amobarbital, butalbital, butabarbital, methohexital, pentobarbital, phenobarbital, thiopental, and secobarbital benztropine drugs for bladder problems like solifenacin, trospium, oxybutynin, tolterodine, hyoscyamine, and methscopolamine drugs for breathing problems like ipratropium and tiotropium drugs for certain stomach or intestine problems like propantheline, homatropine methylbromide, glycopyrrolate, atropine, belladonna, and dicyclomine general anesthetics like etomidate, ketamine, nitrous oxide, propofol, desflurane, enflurane, halothane, isoflurane, and sevoflurane medicines for depression, anxiety, or psychotic disturbances medicines for sleep muscle relaxants naltrexone narcotic medicines (opiates) for pain phenothiazines like perphenazine, thioridazine, chlorpromazine, mesoridazine, fluphenazine, prochlorperazine, promazine, and trifluoperazine scopolamine tramadol trihexyphenidyl What if I miss a dose? If you miss a dose, take it as soon as you can. If it is almost time for your next dose, take only that dose. Do not take double or extra doses. Where should I keep my medicine? Keep out of the reach of children. This medicine can be abused. Keep your medicine in a safe place to protect it from theft. Do not share this medicine with anyone. Selling or giving away this medicine is dangerous and against the law. Store at room temperature between 20 and 25 degrees C (68 and 77 degrees F). Keep container tightly closed. Protect from light. This medicine may cause accidental overdose and if it is taken by other adults, children, or pets. Flush any unused medicine down the toilet to reduce the chance of harm. Do not use the medicine after the expiration date. What should I tell my health care provider before I take this medicine? They need to know if you have any of these conditions: brain tumor Crohn's disease, inflammatory bowel disease, or ulcerative colitis drink more than 3 alcohol containing drinks per day drug abuse or addiction head injury heart or circulation problems kidney disease or problems going to the bathroom liver disease lung disease, asthma, or breathing problems an unusual or allergic reaction to acetaminophen, oxycodone, other opioid analgesics, other medicines, foods, dyes, or preservatives or trying to get breast-feeding What should I watch for while using this medicine? Tell your doctor or health healthcare project manager if your pain does not go away, if it gets worse, or if you have new or a different type of pain. You may develop tolerance to the medicine. Tolerance means that you will need a higher dose of the medication for pain relief. Tolerance is normal and is expected if you take this medicine for a long time. Do not suddenly stop taking your medicine because you may develop a severe reaction. Your body becomes used to the medicine. This does NOT mean you are addicted. Addiction is a behavior related to getting and using a drug for a non-medical reason. If you have pain, you have a medical reason to take pain medicine. Your doctor will tell you how much medicine to take. If your doctor wants you to stop the medicine, the dose will be slowly lowered over time to avoid any side effects. You may get drowsy or dizzy. Do not drive, use machinery, or do anything that needs mental alertness until you know how this medicine affects you. Do not stand or sit up quickly, especially if you are an older patient. This reduces the risk of dizzy or fainting spells. Alcohol may interfere with the effect of this medicine. Avoid alcoholic drinks. There are different types of narcotic medicines (opiates) for pain. If you take more than one type at the same time, you may have more side effects. Give your health care provider a list of all medicines you use. Your doctor will tell you how much medicine to take. Do not take more medicine than directed. Call emergency for help if you have problems breathing. The medicine will cause constipation. Try to have a bowel movement at least every 2 to 3 days. If you do not have a bowel movement for 3 days, call your doctor or health healthcare project manager. Do not take Tylenol (acetaminophen) or medicines that have acetaminophen with this medicine. Too much acetaminophen can be very dangerous. Many nonprescription medicines contain acetaminophen. Always read the labels carefully to avoid taking more acetaminophen. You have been given the following additional information: Otitis Media, Abx Tx (Adult) Sinusitis, Abx Tx Cefuroxime Axetil Oral tablet Oxycodone Hydrochloride, Acetaminophen Oral tablet Do not work for two days until better. (Electronically signed by Med Randolph MD 09/30/2016 15:15)
--- NOTE | 2016-09-30 15:16 | ED MED RECONCILIATION SUMMARY ---
Patient: ADAM LYON Medication Reconciliation Report [facility] VisitID: [id number] [address] [place] [address] 41y, F Registration Date/Time: 09/23/2016 Weight: 63.5 kg Height/Length: 67 in. BMI: 21.9 ALLERGIES: Amoxicillin The patient's Home Medications are listed below: CONTINUE TAKING THE FOLLOWING MEDICATIONS: Citalopram Hydrobromide Oral Levothyroxine Sodium pt uncertain of dose [place] Citrate Oral, low dose, 4 pills at night The source(s) of the original Home Medication information: Not obtained. The following Medications were given to the patient in the Emergency Department: None. The following Medications were prescribed to the patient: Ceftin 500 mg: take 1 tab orally every 12 hours for 14 days. No refill. -- Med Randolph MD Oxycodone/APAP 5 mg/325 mg: take 1-2 tablets orally every 6 hours as needed for pain. Dispense fifteen (15). No refill. -- Med Randolph MD
--- NOTE | 2016-09-30 15:16 | ED MAR SUMMARY ---
..... Medication Administration Record [facility] [address], [place] [id number] Patient: ADAM LYON Visit ID: [id number] 41y, F Weight: 63.5 kg Height/Length: 67 in BMI: 21.9 ALLERGIES: Amoxicillin
--- NOTE | 2016-09-30 15:16 | ED MED RECONCILIATION SUMMARY ---
Patient: ADAM LYON Medication Reconciliation Report [facility] VisitID: [id number] [address] [place] [address] 41y, F Registration Date/Time: 09/23/2016 Weight: 63.5 kg Height/Length: 67 in. BMI: 21.9 ALLERGIES: Amoxicillin The patient's Home Medications are listed below: CONTINUE TAKING THE FOLLOWING MEDICATIONS: Citalopram Hydrobromide Oral Levothyroxine Sodium pt uncertain of dose [place] Citrate Oral, low dose, 4 pills at night The source(s) of the original Home Medication information: Not obtained. The following Medications were given to the patient in the Emergency Department: None. The following Medications were prescribed to the patient: Ceftin 500 mg: take 1 tab orally every 12 hours for 14 days. No refill. -- Med Randolph MD Oxycodone/APAP 5 mg/325 mg: take 1-2 tablets orally every 6 hours as needed for pain. Dispense fifteen (15). No refill. -- Med Randolph MD
--- NOTE | 2016-09-30 15:16 | ED MAR SUMMARY ---
..... Medication Administration Record [facility] [address] [place], [place] [id number] Patient: ADAM LYON Visit ID: [id number] 41y, F Weight: 63.5 kg Height/Length: 67 in BMI: 21.9 ALLERGIES: Amoxicillin
== END 2016-09-23 07:20 | disposition home or self-care (01) ==
LOC: ED SRH 06:46
DX: H66.005 Acute suppurative otitis media without spontaneous rupture of ear drum, recurrent, left ear (principal); J01.01 Acute recurrent maxillary sinusitis

== ENCOUNTER 2016-09-29 08:22 | Emergency (ER) | payer OTHER ==
--- NOTE | 2016-09-29 15:10 | ED CLINICAL REPORT ---
Clinical Report - Physicians/Mid Levels [facility] [address] [place] [address] 09/29/2016 8:23 Patient: ADAM LYON Time Seen: 08:30; initial patient contact. Arrived- By private vehicle. Historian- patient. HISTORY OF PRESENT ILLNESS Chief Complaint: SINUS PAIN. This started about 1 1/2 weeks ago and is still present (persistent). It was gradual in onset. The illness is described as moderate. The patient has had a cough, nasal congestion, sinus pressure, sinus drainage and muscle aches. She has had a nasal discharge and ear pain. No sputum production, difficulty breathing, chest discomfort, fever or chills. No sore throat. Additional history - No known contact with a sick individual. No recent travel. Similar symptoms previously: None. Recent medical care: The patient was seen recently at this facility in the emergency department. Evaluation/treatment: antibiotic and pain medication prescribed. Diagnosis: sinusitis and ear infection. REVIEW OF SYSTEMS No headache, nausea, vomiting or skin rash. All systems otherwise negative, except as recorded above. PAST HISTORY Sinusitis. Otitis Media. Migraine Headache. Pelvic Pain. Substance Abuse. Bipolar Disorder. Chronic Back Pain. Gastritis. Vomiting. Diarrhea. Pancreatitis. Ovarian Cyst. Abdominal Pain. Hypothyroidism. Depression. Back Pain. Laceration. SURGERIES: Back Surgery. SOCIAL HISTORY Never smoker. Occasional alcohol use. No drug use. ADDITIONAL NOTES The nursing notes have been reviewed. PHYSICAL EXAM Vital Signs: 09/29/2016 08:35 BP: 122/75. HR: 70. RR: 18. O2 saturation: 100%. Temp: 98 F. Pain level now: 710. Have been reviewed as normal. Appearance: Alert. No acute distress. Head: Tenderness present to percussion/palpation of the sinuses: mild right and left frontal tenderness, ethmoid tenderness. Eyes: Eyes normal inspection. ENT: Right TM reveals bulging left TM reveals bulging. No erythema or dullness of the right TM. No loss of landmarks or diffuse light reflex involving the right TM. No erythema or dullness of the left TM. No loss of landmarks or diffuse light reflex involving the left TM. Pharynx normal. Uvula midline. Neck: Normal inspection. No lymphadenopathy. CVS: Normal heart rate and rhythm. Heart sounds normal. Respiratory: No respiratory distress. Breath sounds normal. Skin: Normal skin color. No rash. Neuro: Oriented X 3. PROGRESS AND PROCEDURES Disposition: Discharged home in good and improved condition. Condition: good. CLINICAL IMPRESSION Acute ethmoidal and frontal sinusitis INSTRUCTIONS Do not work today, tomorrow. (Get Kati D or Marla D (OTC)). Your Current Medications: CONTINUE TAKING THE FOLLOWING MEDICATIONS: Ceftin Oral. Citalopram Hydrobromide Oral. Levothyroxine Sodium : pt uncertain of dose. [place] Citrate Oral : low dose, 4 pills at night. Percocet Oral. Prescription Medications: Fluticasone nasal spray: 2 sprays to each nostril daily. Dispense one (1) unit. No refills. OTC Medications: Afrin nasal spray (Available over the counter): 1 spray to each nostril twice daily for 2 days, for congestion. Follow-up: Follow up with your doctor in about two days if not better. Call for an appointment. (Electronically signed by Ferdinand Ortiz Dr. 09/29/2016 9:04)
--- NOTE | 2016-09-29 15:10 | ED CLINICAL REPORT ---
Clinical Report - Physicians/Mid Levels [facility] [address] [place] [address] 09/29/2016 8:23 Patient: ADAM LYON Time Seen: 08:30; initial patient contact. Arrived- By private vehicle. Historian- patient. HISTORY OF PRESENT ILLNESS Chief Complaint: SINUS PAIN. This started about 1 1/2 weeks ago and is still present (persistent). It was gradual in onset. The illness is described as moderate. The patient has had a cough, nasal congestion, sinus pressure, sinus drainage and muscle aches. She has had a nasal discharge and ear pain. No sputum production, difficulty breathing, chest discomfort, fever or chills. No sore throat. Additional history - No known contact with a sick individual. No recent travel. Similar symptoms previously: None. Recent medical care: The patient was seen recently at this facility in the emergency department. Evaluation/treatment: antibiotic and pain medication prescribed. Diagnosis: sinusitis and ear infection. REVIEW OF SYSTEMS No headache, nausea, vomiting or skin rash. All systems otherwise negative, except as recorded above. PAST HISTORY Sinusitis. Otitis Media. Migraine Headache. Pelvic Pain. Substance Abuse. Bipolar Disorder. Chronic Back Pain. Gastritis. Vomiting. Diarrhea. Pancreatitis. Ovarian Cyst. Abdominal Pain. Hypothyroidism. Depression. Back Pain. Laceration. SURGERIES: Back Surgery. SOCIAL HISTORY Never smoker. Occasional alcohol use. No drug use. ADDITIONAL NOTES The nursing notes have been reviewed. PHYSICAL EXAM Vital Signs: 09/29/2016 08:35 BP: 122/75. HR: 70. RR: 18. O2 saturation: 100%. Temp: 98 F. Pain level now: 710. Have been reviewed as normal. Appearance: Alert. No acute distress. Head: Tenderness present to percussion/palpation of the sinuses: mild right and left frontal tenderness, ethmoid tenderness. Eyes: Eyes normal inspection. ENT: Right TM reveals bulging left TM reveals bulging. No erythema or dullness of the right TM. No loss of landmarks or diffuse light reflex involving the right TM. No erythema or dullness of the left TM. No loss of landmarks or diffuse light reflex involving the left TM. Pharynx normal. Uvula midline. Neck: Normal inspection. No lymphadenopathy. CVS: Normal heart rate and rhythm. Heart sounds normal. Respiratory: No respiratory distress. Breath sounds normal. Skin: Normal skin color. No rash. Neuro: Oriented X 3. PROGRESS AND PROCEDURES Disposition: Discharged home in good and improved condition. Condition: good. CLINICAL IMPRESSION Acute ethmoidal and frontal sinusitis INSTRUCTIONS Do not work today, tomorrow. (Get Kati D or Marla D (OTC)). Your Current Medications: CONTINUE TAKING THE FOLLOWING MEDICATIONS: Ceftin Oral. Citalopram Hydrobromide Oral. Levothyroxine Sodium : pt uncertain of dose. [place] Citrate Oral : low dose, 4 pills at night. Percocet Oral. Prescription Medications: Fluticasone nasal spray: 2 sprays to each nostril daily. Dispense one (1) unit. No refills. OTC Medications: Afrin nasal spray (Available over the counter): 1 spray to each nostril twice daily for 2 days, for congestion. Follow-up: Follow up with your doctor in about two days if not better. Call for an appointment. (Electronically signed by Ferdinand Ortiz Dr. 09/29/2016 9:04)
--- NOTE | 2016-09-29 15:10 | ED NURSING NOTES ---
Clinical Report - Nurses [facility] [address] [place] [address] 09/29/2016 8:23 Patient: ADAM LYON TRIAGE Triage time 08:31. Acuity: LEVEL 4. Chief Complaint: RIGHT EAR PAIN and LEFT EAR PAIN and SINUS CONGESTION. Alert. No acute distress. RIGO COMA SCORE: Rigo Coma Scale: 15- eyes open spontaneously (4); best verbal response- oriented x 4 (5); best motor response- obeys commands (6). --08:35 Itzel Foy R.N. 08:35 09/29/16. BP: 122/75. HR: 70. RR: 18. O2 saturation: 100% on room air. Temp: 98 F. Pain level now: 12/08. --08:37 Itzel Foy R.N. Weight: 63.5 kg stated. Height/Length: 67 inches Per Patient. BMI: 21.9. --08:33 Itzel oFy R.N. Medications Citalopram Hydrobromide Oral. Levothyroxine Sodium pt uncertain of dose. [place] Citrate Oral (low dose, 4 pills at night). --08:31 Itzel Foy R.N. Ceftin Oral. Percocet Oral. --08:32 Itzel Foy R.N. Medication/allergy information source: the patient. --08:35 Itzel Foy R.N. Allergies Amoxicillin. --08:31 Itzel Foy R.N. History Arrived by private vehicle. Historian: patient. Unaccompanied. Primary physician (Reji). Onset. (about 1 week). ( seen here recently and feels no better). PAST MEDICAL HX: Last normal menstrual period- August 2016. SOCIAL HX: Never smoker. Occasional alcohol use. No drug use. FALL RISK ASSESSMENT: Fall risk assessment completed. No fall risk identified. FUNCTIONAL ASSESSMENT: Functional assessment: no impairments noted. LEARNING NEEDS ASSESSMENT: The learning needs assessment revealed no barriers. --08:35 Itzel Foy R.N. PROBLEMS: Sinusitis. Otitis Media. Migraine Headache. Pelvic Pain. Substance Abuse. Bipolar Disorder. Chronic Back Pain. Gastritis. Vomiting. Diarrhea. Pancreatitis. Ovarian Cyst. Abdominal Pain. Hypothyroidism. Depression. Back Pain. Laceration. --08:32 Itzel Foy R.N. ADDITIONAL SURGERIES: Back Surgery. --08:32 Itzel Foy R.N. Assessment GENERAL / NEURO / PSYCH: Alert. Oriented X 4. Appears in no acute distress. Patient appears calm and cooperative. RESPIRATORY: Respirations not labored. SKIN: Skin is warm and dry. --08:35 Itzel Foy R.N. Interventions ID and allergy band on patient. To treatment room. --08:35 Itzel Foy R.N. PHYSICAL ASSESSMENT 08:45 09/29/16. GENERAL / NEURO / PSYCH: Alert. Appears in no acute distress. RESPIRATORY: Respirations not labored. SKIN: Skin is warm and dry. --08:46 Itzel Foy R.N. NURSING PROGRESS NOTES 08:46 09/29/16. Head of bed elevated. Call light placed in reach. Side rails up x 1. Bed placed in lowest position. Brakes of bed on. --08:46 Itzel Foy R.N. 08:55. The patient is calm. Overall patient status is the same- she states feels the same. GENERAL / NEURO / PSYCH: Alert. Oriented X 4. RESPIRATORY: No respiratory distress. SKIN: Skin is warm and dry. --09:06 Itzel Foy R.N. DISPOSITION / DISCHARGE Departure time: 854. Condition at departure: unchanged. No learning barriers present. Discharge instructions provided and reviewed with the patient. Reviewed medication(s). Prescription(s) given to the patient. Work note given. Patient verbalized understanding. Written instructions provided in [place]ijani. The patient was discharged home and unaccompanied at time of discharge. She left the Emergency Department ambulatory and via private vehicle. FALL RISK ASSESSMENT: Fall risk assessment completed. No fall risk identified. --09:20 Itzel Foy R.N. 08:55 09/29/16. Pain level now: 7/10. Additional comments: here under an hour. --09:20 Itzel Foy R.N. Locked/Released at 09/29/2016 9:21 by Itzel Foy R.N.
--- NOTE | 2016-09-29 15:10 | ED NURSING NOTES ---
Clinical Report - Nurses [facility] [address] [place] [address] 09/29/2016 8:23 Patient: ADAM LYON TRIAGE Triage time 08:31. Acuity: LEVEL 4. Chief Complaint: RIGHT EAR PAIN and LEFT EAR PAIN and SINUS CONGESTION. Alert. No acute distress. RIGO COMA SCORE: Rigo Coma Scale: 15- eyes open spontaneously (4); best verbal response- oriented x 4 (5); best motor response- obeys commands (6). --08:35 Itzel Foy R.N. 08:35 09/29/16. BP: 122/75. HR: 70. RR: 18. O2 saturation: 100% on room air. Temp: 98 F. Pain level now: 12/08. --08:37 Itzel Foy R.N. Weight: 63.5 kg stated. Height/Length: 67 inches Per Patient. BMI: 21.9. --08:33 Itzel Foy R.N. Medications Citalopram Hydrobromide Oral. Levothyroxine Sodium pt uncertain of dose. [place] Citrate Oral (low dose, 4 pills at night). --08:31 Itzel Foy R.N. Ceftin Oral. Percocet Oral. --08:32 Itzel Foy R.N. Medication/allergy information source: the patient. --08:35 Itzel Foy R.N. Allergies Amoxicillin. --08:31 Itzel Foy R.N. History Arrived by private vehicle. Historian: patient. Unaccompanied. Primary physician (Reji). Onset. (about 1 week). ( seen here recently and feels no better). PAST MEDICAL HX: Last normal menstrual period- August 2016. SOCIAL HX: Never smoker. Occasional alcohol use. No drug use. FALL RISK ASSESSMENT: Fall risk assessment completed. No fall risk identified. FUNCTIONAL ASSESSMENT: Functional assessment: no impairments noted. LEARNING NEEDS ASSESSMENT: The learning needs assessment revealed no barriers. --08:35 Itzel Foy R.N. PROBLEMS: Sinusitis. Otitis Media. Migraine Headache. Pelvic Pain. Substance Abuse. Bipolar Disorder. Chronic Back Pain. Gastritis. Vomiting. Diarrhea. Pancreatitis. Ovarian Cyst. Abdominal Pain. Hypothyroidism. Depression. Back Pain. Laceration. --08:32 Itzel Foy R.N. ADDITIONAL SURGERIES: Back Surgery. --08:32 Itzel Foy R.N. Assessment GENERAL / NEURO / PSYCH: Alert. Oriented X 4. Appears in no acute distress. Patient appears calm and cooperative. RESPIRATORY: Respirations not labored. SKIN: Skin is warm and dry. --08:35 Itzel Foy R.N. Interventions ID and allergy band on patient. To treatment room. --08:35 Itzel Foy R.N. PHYSICAL ASSESSMENT 08:45 09/29/16. GENERAL / NEURO / PSYCH: Alert. Appears in no acute distress. RESPIRATORY: Respirations not labored. SKIN: Skin is warm and dry. --08:46 Itzel Foy R.N. NURSING PROGRESS NOTES 08:46 09/29/16. Head of bed elevated. Call light placed in reach. Side rails up x 1. Bed placed in lowest position. Brakes of bed on. --08:46 Itzel Foy R.N. 08:55. The patient is calm. Overall patient status is the same- she states feels the same. GENERAL / NEURO / PSYCH: Alert. Oriented X 4. RESPIRATORY: No respiratory distress. SKIN: Skin is warm and dry. --09:06 Itzel Foy R.N. DISPOSITION / DISCHARGE Departure time: 854. Condition at departure: unchanged. No learning barriers present. Discharge instructions provided and reviewed with the patient. Reviewed medication(s). Prescription(s) given to the patient. Work note given. Patient verbalized understanding. Written instructions provided in Estonian. The patient was discharged home and unaccompanied at time of discharge. She left the Emergency Department ambulatory and via private vehicle. FALL RISK ASSESSMENT: Fall risk assessment completed. No fall risk identified. --09:20 Itzel Foy R.N. 08:55 09/29/16. Pain level now: 7/10. Additional comments: here under an hour. --09:20 Itzel Foy R.N. Locked/Released at 09/29/2016 9:21 by Itzel Foy R.N.
--- NOTE | 2016-09-29 15:11 | ED MED RECONCILIATION SUMMARY ---
Patient: ADAM LYON Medication Reconciliation Report [facility] VisitID: [id number] [address] [place] [address] 41y, F Registration Date/Time: 09/29/2016 Weight: 63.5 kg Height/Length: 67 in. BMI: 21.9 ALLERGIES: Amoxicillin The patient's Home Medications are listed below: CONTINUE TAKING THE FOLLOWING MEDICATIONS: Ceftin Oral Citalopram Hydrobromide Oral Levothyroxine Sodium pt uncertain of dose [place] Citrate Oral, low dose, 4 pills at night Percocet Oral The source(s) of the original Home Medication information: patient The following Medications were given to the patient in the Emergency Department: None. The following Medications were prescribed to the patient: Afrin nasal spray (Available over the counter): 1 spray to each nostril twice daily for 2 days, for congestion. -- Ferdinand Ortiz Dr. Fluticasone nasal spray: 2 sprays to each nostril daily. Dispense one (1) unit. No refills. -- Ferdinand Ortiz Dr.
--- NOTE | 2016-09-29 15:11 | ED DISCHARGE INSTRUCTIONS ---
Patient: ADAM LYON General Instructions [facility] VisitID: [id number] [place] [address] 41y, F Registration Date/Time: 09/29/2016 Acute ethmoidal and frontal sinusitis INSTRUCTIONS Do not work today, tomorrow. (Get Kati D or Claritin D (OTC)). Your Current Medications: CONTINUE TAKING THE FOLLOWING MEDICATIONS: Ceftin Oral. Citalopram Hydrobromide Oral. Levothyroxine Sodium : pt uncertain of dose. [place] Citrate Oral : low dose, 4 pills at night. Percocet Oral. Prescription Medications: Fluticasone nasal spray: 2 sprays to each nostril daily. Dispense one (1) unit. No refills. OTC Medications: Afrin nasal spray (Available over the counter): 1 spray to each nostril twice daily for 2 days, for congestion. Follow-up: Follow up with your doctor in about two days if not better. Call for an appointment. ADDITIONAL INFORMATION Sinusitis [Abx Tx] The sinuses are air-filled spaces within the bones of the face. They connect to the inside of the nose. Sinusitis is an inflammation of the tissue lining the sinus cavity. Sinus inflammation can occur during a cold or hay-fever (allergies to pollens and other particles in the air) and cause symptoms of sinus congestion and fullness. A sinus infection causes fever, headache and facial pain. There is usually green or yellow drainage from the nose or into the back of the throat (post-nasal drip). Antibiotics are prescribed to treat this condition. Home Care: Drink plenty of water, hot tea, and other liquids to stay well hydrated. This thins the mucus and promotes sinus drainage. Apply heat to the painful areas of the face. Use a towel soaked in hot water. Or, sustainable products marketing manager the shower and direct the hot spray onto your face. This is a good way to inhale warm water vapor and get heat on your face at the same time. (Cover your mouth and nose with your hands so you can still breathe as you do this.) Use a vaporizer with products such as [facility] [facility] VapoRub (contains menthol) at night. Suck on peppermint, menthol or eucalyptus hard candies during the day. An expectorant containing guaifenesin (such as Robitussin), helps to thin the mucus and promote drainage from the sinuses. [id number]-[id number] decongestants may be used unless a similar medicine was prescribed. Nasal sprays work the fastest. Use one that contains phenylephrine (Hair-synephrine, Sinex and others) or oxymetazoline (Afrin). First blow the nose gently to remove mucus, then apply the drops. Do not use these medicines more often than directed on the label or for more than three days or symptoms may worsen. You may also use tablets containing pseudoephedrine (Sudafed). Many sinus remedies combine ingredients, which may increase side effects. Read the labels or ask the pharmacist for help. NOTE: Persons with high blood pressure should not use decongestants. They can raise blood pressure. Antihistamines are useful if allergies are a cause of your sinusitis. The mildest one is chlorpheniramine (available without a prescription). The dose for adults is 8-12mg three times a day. [NOTE: Do not use chlorpheniramine if you have glaucoma or if you are a man with trouble urinating due to an enlarged prostate.] Claritin (loratidine) is an antihistamine that causes less drowsiness and is a good alternative for daytime use. Do not use nasal rinses or irrigation during an acute sinus infection, unless advised by your doctor. Rinsing may spread the infection to other sinuses. You may use acetaminophen (Tylenol) or ibuprofen (Motrin, Advil) to control pain, unless another pain medicine was prescribed. [ NOTE: If you have chronic liver or kidney disease or ever had a stomach ulcer, talk with your doctor before using these medicines.] (Aspirin should never be used in anyone under 18 years of age who is ill with a fever. It may cause severe liver damage.) Finish the full course, even if you are feeling better after a few days. Follow Up with your doctor or this facility in one week or as instructed by our staff if not improving. Get Prompt Medical Attention if any of the following occur: Facial pain or headache becomes more severe Stiff neck Unusual drowsiness or confusion, or not acting like your normal self Swelling of the forehead or eyelids Vision problems including blurred or double vision Fever of 100.4F (38C) or higher, or as directed by your healthcare provider Seizure Fluticasone Propionate Nasal spray, solution What is this medicine? FLUTICASONE (floo TIK a sone) is a corticosteroid. It helps decrease inflammation in your nose. This medicine is used to treat the symptoms of allergies like sneezing, itching, and runny or stuffy nose. How should I use this medicine? This medicine is for use in the nose. Follow the directions on your prescription label. This medicine works best if used regularly. Do not use more often than directed. Make sure that you are using your nasal spray correctly. Ask you doctor or health care provider if you have any questions. Talk to your front end assistant regarding the use of this medicine in children. While this drug may be prescribed for children as young as 4 years old for selected conditions, precautions do apply. What side effects may I notice from receiving this medicine? Side effects that you should report to your doctor or health care director rn as soon as possible: allergic reactions like skin rash, itching or hives, swelling of the face, lips, or tongue changes in vision flu-like symptoms white patches or sores in the mouth or nose Side effects that usually do not require medical attention (report to your doctor or health care director rn if they continue or are bothersome): burning or irritation inside the nose or throat cough headache nosebleed unusual taste or smell What may interact with this medicine? ketoconazole metyrapone some medicines for HIV vaccines What if I miss a dose? If you miss a dose, use it as soon as you remember. If it is almost time for your next dose, use only that dose and continue with your regular schedule. Do not use double or extra doses. Where should I keep my medicine? Keep out of the reach of children. Store at room temperature between 15 and 30 degrees C (59 and 86 degrees F). Throw away any unused medicine after the expiration date. What should I tell my health care provider before I take this medicine? They need to know if you have any of these conditions: infection, like tuberculosis, herpes, or fungal infection recent surgery on nose or sinuses taking corticosteroid by mouth an unusual or allergic reaction to fluticasone, steroids, other medicines, foods, dyes, or preservatives or trying to get breast-feeding What should I watch for while using this medicine? Visit your doctor or health care director rn for regular checks on your progress. Some symptoms may improve within 12 hours after starting use. Check with your doctor or health care director rn if there is no improvement in your condition after 3 weeks of use. Do not come in contact with people who have chickenpox or the measles while you are taking this medicine. If you do, call your doctor right away. You have been given the following additional information: Sinusitis, Abx Tx Fluticasone Propionate Nasal spray, solution Do not work today, tomorrow. (Electronically signed by Ferdinand Ortiz Dr. 09/29/2016 9:04)
--- NOTE | 2016-09-29 15:11 | ED DISCHARGE INSTRUCTIONS ---
Patient: ADAM LYON General Instructions [facility] VisitID: [id number] [place] [address] 41y, F Registration Date/Time: 09/29/2016 Acute ethmoidal and frontal sinusitis INSTRUCTIONS Do not work today, tomorrow. (Get Kati D or Claritin D (OTC)). Your Current Medications: CONTINUE TAKING THE FOLLOWING MEDICATIONS: Ceftin Oral. Citalopram Hydrobromide Oral. Levothyroxine Sodium : pt uncertain of dose. [place] Citrate Oral : low dose, 4 pills at night. Percocet Oral. Prescription Medications: Fluticasone nasal spray: 2 sprays to each nostril daily. Dispense one (1) unit. No refills. OTC Medications: Afrin nasal spray (Available over the counter): 1 spray to each nostril twice daily for 2 days, for congestion. Follow-up: Follow up with your doctor in about two days if not better. Call for an appointment. ADDITIONAL INFORMATION Sinusitis [Abx Tx] The sinuses are air-filled spaces within the bones of the face. They connect to the inside of the nose. Sinusitis is an inflammation of the tissue lining the sinus cavity. Sinus inflammation can occur during a cold or hay-fever (allergies to pollens and other particles in the air) and cause symptoms of sinus congestion and fullness. A sinus infection causes fever, headache and facial pain. There is usually green or yellow drainage from the nose or into the back of the throat (post-nasal drip). Antibiotics are prescribed to treat this condition. Home Care: Drink plenty of water, hot tea, and other liquids to stay well hydrated. This thins the mucus and promotes sinus drainage. Apply heat to the painful areas of the face. Use a towel soaked in hot water. Or, string top sealer the shower and direct the hot spray onto your face. This is a good way to inhale warm water vapor and get heat on your face at the same time. (Cover your mouth and nose with your hands so you can still breathe as you do this.) Use a vaporizer with products such as [employer] VapoRub (contains menthol) at night. Suck on peppermint, menthol or eucalyptus hard candies during the day. An expectorant containing guaifenesin (such as Robitussin), helps to thin the mucus and promote drainage from the sinuses. Towu-mgj-sfuhvmf decongestants may be used unless a similar medicine was prescribed. Nasal sprays work the fastest. Use one that contains phenylephrine (Hair-synephrine, Sinex and others) or oxymetazoline (Afrin). First blow the nose gently to remove mucus, then apply the drops. Do not use these medicines more often than directed on the label or for more than three days or symptoms may worsen. You may also use tablets containing pseudoephedrine (Sudafed). Many sinus remedies combine ingredients, which may increase side effects. Read the labels or ask the pharmacist for help. NOTE: Persons with high blood pressure should not use decongestants. They can raise blood pressure. Antihistamines are useful if allergies are a cause of your sinusitis. The mildest one is chlorpheniramine (available without a prescription). The dose for adults is 8-12mg three times a day. [NOTE: Do not use chlorpheniramine if you have glaucoma or if you are a man with trouble urinating due to an enlarged prostate.] Claritin (loratidine) is an antihistamine that causes less drowsiness and is a good alternative for daytime use. Do not use nasal rinses or irrigation during an acute sinus infection, unless advised by your doctor. Rinsing may spread the infection to other sinuses. You may use acetaminophen (Tylenol) or ibuprofen (Motrin, Advil) to control pain, unless another pain medicine was prescribed. [ NOTE: If you have chronic liver or kidney disease or ever had a stomach ulcer, talk with your doctor before using these medicines.] (Aspirin should never be used in anyone under 18 years of age who is ill with a fever. It may cause severe liver damage.) Finish the full course, even if you are feeling better after a few days. Follow Up with your doctor or this facility in one week or as instructed by our staff if not improving. Get Prompt Medical Attention if any of the following occur: Facial pain or headache becomes more severe Stiff neck Unusual drowsiness or confusion, or not acting like your normal self Swelling of the forehead or eyelids Vision problems including blurred or double vision Fever of 100.4F (38C) or higher, or as directed by your healthcare provider Seizure Fluticasone Propionate Nasal spray, solution What is this medicine? FLUTICASONE (floo TIK a sone) is a corticosteroid. It helps decrease inflammation in your nose. This medicine is used to treat the symptoms of allergies like sneezing, itching, and runny or stuffy nose. How should I use this medicine? This medicine is for use in the nose. Follow the directions on your prescription label. This medicine works best if used regularly. Do not use more often than directed. Make sure that you are using your nasal spray correctly. Ask you doctor or health care provider if you have any questions. Talk to your federal air marshal regarding the use of this medicine in children. While this drug may be prescribed for children as young as 4 years old for selected conditions, precautions do apply. What side effects may I notice from receiving this medicine? Side effects that you should report to your doctor or health childbirth and infant care teacher as soon as possible: allergic reactions like skin rash, itching or hives, swelling of the face, lips, or tongue changes in vision flu-like symptoms white patches or sores in the mouth or nose Side effects that usually do not require medical attention (report to your doctor or health childbirth and infant care teacher if they continue or are bothersome): burning or irritation inside the nose or throat cough headache nosebleed unusual taste or smell What may interact with this medicine? ketoconazole metyrapone some medicines for HIV vaccines What if I miss a dose? If you miss a dose, use it as soon as you remember. If it is almost time for your next dose, use only that dose and continue with your regular schedule. Do not use double or extra doses. Where should I keep my medicine? Keep out of the reach of children. Store at room temperature between 15 and 30 degrees C (59 and 86 degrees F). Throw away any unused medicine after the expiration date. What should I tell my health care provider before I take this medicine? They need to know if you have any of these conditions: infection, like tuberculosis, herpes, or fungal infection recent surgery on nose or sinuses taking corticosteroid by mouth an unusual or allergic reaction to fluticasone, steroids, other medicines, foods, dyes, or preservatives or trying to get breast-feeding What should I watch for while using this medicine? Visit your doctor or health childbirth and infant care teacher for regular checks on your progress. Some symptoms may improve within 12 hours after starting use. Check with your doctor or health childbirth and infant care teacher if there is no improvement in your condition after 3 weeks of use. Do not come in contact with people who have chickenpox or the measles while you are taking this medicine. If you do, call your doctor right away. You have been given the following additional information: Sinusitis, Abx Tx Fluticasone Propionate Nasal spray, solution Do not work today, tomorrow. (Electronically signed by Ferdinand Ortiz Dr. 09/29/2016 9:04)
--- NOTE | 2016-09-29 15:11 | ED MED RECONCILIATION SUMMARY ---
Patient: ADAM LYON Medication Reconciliation Report [facility] VisitID: [id number] [address] [place] [address] 41y, F Registration Date/Time: 09/29/2016 Weight: 63.5 kg Height/Length: 67 in. BMI: 21.9 ALLERGIES: Amoxicillin The patient's Home Medications are listed below: CONTINUE TAKING THE FOLLOWING MEDICATIONS: Ceftin Oral Citalopram Hydrobromide Oral Levothyroxine Sodium pt uncertain of dose [place] Citrate Oral, low dose, 4 pills at night Percocet Oral The source(s) of the original Home Medication information: patient The following Medications were given to the patient in the Emergency Department: None. The following Medications were prescribed to the patient: Afrin nasal spray (Available over the counter): 1 spray to each nostril twice daily for 2 days, for congestion. -- Ferdinand Ortiz Dr. Fluticasone nasal spray: 2 sprays to each nostril daily. Dispense one (1) unit. No refills. -- Ferdinand Ortiz Dr.
--- NOTE | 2016-09-29 15:11 | ED MAR SUMMARY ---
..... Medication Administration Record [facility] [address], [place] [id number] Patient: ADAM LYON Visit ID: [id number] 41y, F Weight: 63.5 kg Height/Length: 67 in BMI: 21.9 ALLERGIES: Amoxicillin
--- NOTE | 2016-09-29 15:11 | ED MAR SUMMARY ---
..... Medication Administration Record [facility] [address], [place] [id number] Patient: ADAM LYON Visit ID: [id number] 41y, F Weight: 63.5 kg Height/Length: 67 in BMI: 21.9 ALLERGIES: Amoxicillin
== END 2016-09-29 08:55 | disposition home or self-care (01) ==
LOC: ED SRH 08:22
DX: J01.10 Acute frontal sinusitis, unspecified (principal); J01.20 Acute ethmoidal sinusitis, unspecified; E03.9 Hypothyroidism, unspecified; Z79.899 Other long term (current) drug therapy; Z88.1 Allergy status to other antibiotic agents